=== PATIENT | male | born 1955 | race Caucasian/White ===

== ENCOUNTER 2018-01-31 00:50 | Emergency (ER) | payer BC, OTHER ==
[~2018-01-31] VITALS: Ht 177.8 cm; Wt 114.7 kg
[~2018-01-31 00:50] MED LIST: ACET325S8 PO; MILKSUS5 PO; PERC5TAB12 PO; VASO10TA8 PO; XARE10TA PO
[2018-01-31 00:54] VITALS: BP 189/88; PULSE 71; RESP 18; TEMP 97.6; O2SAT 98
[2018-01-31] MEDS ORDERED: LIPI40TA PO (01:01)
[2018-01-31] MEDS ORDERED: ENAL20TA PO (01:01)
[2018-01-31] MEDS ORDERED: AMLO10TA2 PO (01:01)
[2018-01-31] MEDS ORDERED: cloNIDine HCL 0.1 MG TAB PO ONE (01:15)
--- NOTE | 2018-01-31 01:21 | PD ---
HPI Chief Complaint: Tingling left arm Time Seen by Provider: 01:02 Travel History International Travel<30 days: No Contact w/Intl Traveler<30days: No Traveled to known affect area: No History of Present Illness HPI 62yo M with PMH of HTN, HLD presents to the ED with c/o tingling in left arm for 2 days. Said he went to urgent care yesterday and blood pressure was 200/ 90 so he was given clonidine 0.1mg PO and repeat BP was 160/80. Pt felt better after and went home. Pt then started having left arm tingling again today. Said it has actually gotten better by itself. Denies any fever, focal weakness or numbness, changes in speech, facial droop, vision changes, trauma, neck pain , chest pain, sob, n/v, abdominal pain. Pt took his normal BP meds in the morning. PFSH Past Medical History Arthritis: Yes Cancer: No Cardiovascular Problems: Yes High Cholesterol: Yes Diabetes: No Diminished Hearing: No Endocrine: No Glaucoma: No Genitourinary: No Hepatitis: No Hiatal Hernia: No Hypertension: Yes Immune Disorder: No Musculoskeletal: Yes (ARTHRITIS) Neurologic: No Psychiatric: No Reproductive: No Respiratory: No Thyroid Disease: No Tetanus Vaccination: Unknown Influenza Vaccination: No Past Surgical History AICD: No Joint Replacement: No Pacemaker: No Other Surgery: Yes (ACHILLES TENDON REPAIR) Social History Alcohol Use: Yes (1 beer QD) Tobacco Use: No Substance Use: No Allergies-Medications (Allergen,Severity, Reaction): Coded Allergies: No Known Allergies (Unverified Adverse Reaction, Unknown, 01/31/18) Reported Meds & Prescriptions Reported Meds & Active Scripts Active Reported Lipitor (Atorvastatin Calcium) 40 Mg Tab 40 Mg PO HS Enalapril (Enalapril Maleate) 20 Mg Tab 20 Mg PO DAILY Amlodipine (Amlodipine Besylate) 10 Mg Tab 10 Mg PO DAILY Review of Systems Except as stated in HPI: all other systems reviewed are Neg Physical Exam Narrative GENERAL: 62yo M not in distress. SKIN: Focused skin assessment warm/dry. HEAD: Atraumatic. Normocephalic. EYES: Pupils equal and round. No scleral icterus. No injection or drainage. ENT: No nasal bleeding or discharge. Mucous membranes pink and moist. NECK: No midline cervical ttp. FROM neck. CARDIOVASCULAR: Regular rate and rhythm. No murmur appreciated. RESPIRATORY: No accessory muscle use. Clear to auscultation. Breath sounds equal bilaterally. GASTROINTESTINAL: Abdomen soft, non-tender, nondistended. MUSCULOSKELETAL: No obvious deformities. No clubbing. No cyanosis. No edema. FROM left shoulder, elbow. Distal pulses intact. NEUROLOGICAL: Awake and alert. No obvious cranial nerve deficits. Motor grossly within normal limits in all extremities. Sensation intact in all extremities. +Tingling in left arm, more in forearm. Normal speech. PSYCHIATRIC: Appropriate mood and affect; insight and judgment normal. Data Data Last Documented VS Vital Signs Date Time Temp Pulse Resp B/P (MAP) Pulse Ox O2 Delivery O2 Flow Rate FiO2 01/31/18 01:53 71 18 136/68 (90) 96 Room Air 01/31/18 00:54 97.6 Orders Orders Electrocardiogram (01/31/18 ) Ct Cerv Spine W/O Contrast (01/31/18 ) Clonidine (Catapres) (01/31/18 01:15) MDM Medical Decision Making Medical Screen Exam Complete: Yes Emergency Medical Condition: Yes Interpretation(s) EKG: NSR 68bpm. 1st AV block. TWI III. No significant ST elevation or depression. Differential Diagnosis Cervical radiculopathy vs. uncontrolled HTN vs. neuropathy Narrative Course 62yo M with intermittent left arm tingling for 2 days. Also with complaint of elevated blood pressure. He has no focal numbness or weakness in any extremities. Denies any changes in vision or speech. Pt responded to clonidine yesterday so gave clonidine 0.1mg PO today and repeat BP improved. Pt feels better and said tingling seemed to have improved. CT cervical spine showed no acute bony abnormality. Severe left sided bony foraminal stenosis at C2-3. EKG normal. Pt has no chest pain. Instructed pt to follow up with primary care physician. Return precautions given. Diagnosis Primary Impression: Elevated blood pressure reading Additional Impression: Foraminal stenosis of cervical region Referrals: Perez Guardado MD as needed Foraminal stenosis C2-3 Patient Instructions: General Instructions Departure Forms: Tests/Procedures Additional Instructions: Please follow up with your primary care physician for blood pressure control. Return to the ED if you have weakness, numbness or any other concerning symptoms. Med/Other Pt SpecificInfo: No Change to Meds Disposition: DISCHARGE HOME Condition: Stable Alexa Armstrong DO Jan 31, 2018 01:21
--- NOTE | 2018-01-31 01:43 | RADRPT ---
EXAM DATE: 01/31/2018 1:34 AM EDT AGE/SEX: 62 years / Male INDICATIONS: Left arm tingling with hypertension. CLINICAL DATA: This is the patient's initial encounter. Patient reports that signs and symptoms have been present for 1 day and indicates a pain score of 7/10. MEDICAL/SURGICAL HISTORY: Hypertension. Arthritis. . RADIATION DOSE: 24.63 CTDI (mGy) COMPARISON: No prior exams available for comparison. TECHNIQUE: Contiguous axial images were obtained using helical multirow detector technique. The vol umetric data was post-processed with multiplanar reconstruction in oblique axial, sagittal, and coron al planes. Using automated exposure control and adjustment of the mA and/or kV according to patient s ize, radiation dose was kept as low as reasonably achievable to obtain optimal diagnostic quality lacho ges. FINDINGS: No prior study for comparison. No acute fracture or spondylolisthesis. At C2-3 there is severe left-s ided bony foraminal stenosis. No bony canal stenosis. No prevertebral soft tissue swelling. CONCLUSION: 1. No acute bony abnormality. Severe left-sided bony foraminal stenosis at C2-C3. Electronically signed by: Tez Noguera MD 01/31/2018 1:41 AM EDT
[2018-01-31 01:53] VITALS: BP 136/68; PULSE 71; RESP 18; O2SAT 96
--- NOTE | 2018-01-31 15:35 | EKG ---
Date Performed: 01/31/2018 Time Performed: 01:31:15 PTAGE: 62 years EKG: Sinus rhythm WITH FIRST DEGREE AV BLOCK BORDERLINE LEFT AXIS DEVIATION INCOMPLETE RIGHT BUNDLE BRANCH BLOCK MINIM AL VOLTAGE CRITERIA FOR LVH, CONSIDER NORMAL VARIANT Since previous tracing, no significant change no pan ABNORMAL ECG PREVIOUS TRACING : 12/23/2013 15.57 DOCTOR: Lexy Pike Interpretating Date/Time 01/31/2018 15:33:14
== END 2018-01-31 02:44 | disposition home or self-care (01) ==
LOC: PHED 00:50
DX: I10 Essential (primary) hypertension (principal); M48.02 Spinal stenosis, cervical region; R94.31 Abnormal electrocardiogram [ECG] [EKG]; E78.5 Hyperlipidemia, unspecified; M19.90 Unspecified osteoarthritis, unspecified site
CPT/HCPCS: 72125; 93005; 99284